=== PATIENT | male | born 1955 | race Caucasian/White ===

== ENCOUNTER 2020-04-08 15:10 | Inpatient (IN) | payer MEDICARE, MEDICAID ==
[~2020-04-08] VITALS: Ht 185.4 cm; Wt 136.0 kg
[2020-04-08 16:13] LABS: BASOPHILS # (AUTO) 0.1 X10'3 (0-0.2); BASOPHILS % (AUTO) 1.2 % (0-1); EOSINOPHILS # (AUTO) 0.3 X10'3 (0-0.9); EOSINOPHILS % (AUTO) 4.3 % (0-6); HEMATOCRIT 40.1 % (42.0-52.0); HEMOGLOBIN 13.7 g/dl (14.0-17.9); LYMPHOCYTES # (AUTO) 2.2 X10'3 (1.1-4.8); LYMPHOCYTES % (AUTO) 32.3 % (21-51); MEAN CORPUSCULAR HGB CONC 34.3 g/dL (33.0-36.5); MEAN CORPUSCULAR VOLUME 96.2 FL (78-98); MEAN PLATELET VOLUME 8.7 FL (7.4-10.4); MONOCYTES # (AUTO) 0.5 X10'3 (0-0.9); MONOCYTES % (AUTO) 7.6 % (2-12); NEUTROPHILS # (AUTO) 3.6 X10'3 (1.8-7.7); NEUTROPHILS % (AUTO) 54.6 % (42-75); PLATELET COUNT 177 X10'3 (140-440); RED BLOOD COUNT 4.16 X10'6 (4.70-6.10); RED CELL DISTRIBUTION WIDTH 13.7 % (11.5-14.5); WHITE BLOOD COUNT 6.7 X10'3 (4.5-11.0)
[2020-04-08 16:31] LABS: ALANINE AMINOTRANSFERASE 45 U/L (12-78); ALBUMIN 3.1 G/DL (3.4-5.0); ALKALINE PHOSPHATASE 58 IU/L (46-116); ANION GAP 5 (8-16); ASPARTATE AMINO TRANSFERASE 34 U/L (10-37); BILIRUBIN,TOTAL 0.7 MG/DL (0.1-1.0); BLOOD UREA NITROGEN 13 MG/DL (7-18); BUN/CREATININE RATIO 10.8 (5.4-32.0); CALCIUM 8.4 MG/DL (8.5-10.1); CHLORIDE 106 MMOL/L (99-107); GLUCOSE 115 MG/DL (70-104); POTASSIUM 4.1 MMOL/L (3.5-5.1); SODIUM 139 MMOL/L (135-145); TOTAL CARBON DIOXIDE 27.8 MMOL/L (24-32); TOTAL PROTEIN 6.3 G/DL (6.4-8.2); eGFR 61 ML/MIN
[2020-04-08 16:37] LABS: MAGNESIUM 2.2 MG/DL (1.5-2.4)
[2020-04-08] MEDS ORDERED: WARF-55 PO (18:00)
[2020-04-08] MEDS ORDERED: FURO40TA4 PO (18:00)
[2020-04-08] MEDS ORDERED: VITA100T PO (18:00)
[2020-04-08] MEDS ORDERED: CHOL100053 PO (18:00)
[2020-04-08] MEDS ORDERED: AMIO200T61 PO (18:00)
[2020-04-08] MEDS ORDERED: LEVO50TA8 PO (18:00)
[2020-04-08] MEDS ORDERED: CARV25TA2 PO (18:00)
[2020-04-08] MEDS ORDERED: ATOR40TA72 PO (18:00)
[2020-04-08] MEDS ORDERED: amiodarone 150mg/dext, iso-os 100 ML IV ONE (18:20)
[2020-04-08] MEDS ORDERED: ondansetron/PF 4mg/2ml inj IV PRN (18:20)
[2020-04-08] MEDS ORDERED: mag hydrox/Alum hydrox/simeth 30ml oral suspension PO PRN (18:20)
[2020-04-08] MEDS ORDERED: magnesium hydroxide 30ml (MOM) UD suspension PO PRN (18:20)
[2020-04-08] MEDS ORDERED: acetaminophen 325mg tablet PO PRN (18:20)
[2020-04-08] MEDS ORDERED: amiodarone 50MG/ML inj IV ONE (18:35)
[2020-04-08] MEDS ORDERED: amiodarone inj. 450 MG in dextrose 5%-water 250 ML IV SCH (18:35)
[2020-04-08 19:00] LABS: HEMOGLOBIN A1C 5.9 % (4.5-6.2)
--- NOTE | 2020-04-08 19:30 | NUR ---
Patient in room PCU 3026. I have received report from Mehran YI and had the opportunity to ask questions and assume patient care.
[2020-04-08] MEDS: amiodarone/D5 360MG/200ML BAG 200 ML IV SCH (19:31)
[2020-04-08 19:45] VITALS: BP 129/82
[2020-04-08] MEDS: heparin, porcine 5000 units/ml vial SQ SCH (20:00)
[2020-04-08] MEDS: carVEDilol 12.5mg tablet PO SCH (20:00)
--- NOTE | 2020-04-08 20:08 | NUR ---
pt was complaining of hunger, called [facility], new orders for cardiac diet and NPO after midnight.
--- NOTE | 2020-04-08 20:28 | NUR ---
pt says he uses Bipap at home, talked to chevy on phone, he ordered for RT to eval and treat
--- NOTE | 2020-04-08 20:34 | NUR ---
paged RT about pts new orders for eval and treat
[2020-04-08] MEDS ORDERED: phytonadione inj. 10 MG in normal saline 100ml IV soln 99 ML IV ONE (20:45)
[2020-04-08 22:00] VITALS: BP 113/71
--- NOTE | 2020-04-08 22:21 | NUR ---
just sent page to RT "pt 3026A is supposed to be on Bipap not Cpap the daughter called and let me know. thank you"
[2020-04-08] MEDS: atorvastatin 20mg tablet PO SCH (22:35)
[2020-04-08] MEDS: normal saline 1000ml 1,000 ML IV SCH (23:35)
[2020-04-09] VITALS (14 sets, daily range): BP systolic 81–126; BP diastolic 54–85
[2020-04-09] MEDS: amiodarone/D5 360MG/200ML BAG 200 ML IV SCH ×2 (01:34→16:00)
[2020-04-09] MEDS: normal saline 1000ml 1,000 ML IV SCH ×2 (04:17→10:30)
[2020-04-09 05:26] LABS: BASOPHILS # (AUTO) 0.1 X10'3 (0-0.2); BASOPHILS % (AUTO) 0.9 % (0-1); EOSINOPHILS # (AUTO) 0.4 X10'3 (0-0.9); EOSINOPHILS % (AUTO) 4.1 % (0-6); HEMATOCRIT 39.8 % (42.0-52.0); HEMOGLOBIN 13.7 g/dl (14.0-17.9); LYMPHOCYTES # (AUTO) 2.9 X10'3 (1.1-4.8); LYMPHOCYTES % (AUTO) 34.5 % (21-51); MEAN CORPUSCULAR HEMOGLOBIN 33.1 PG (27.0-31.0); MEAN CORPUSCULAR HGB CONC 34.4 g/dL (33.0-36.5); MEAN CORPUSCULAR VOLUME 96.3 FL (78-98); MEAN PLATELET VOLUME 8.7 FL (7.4-10.4); MONOCYTES # (AUTO) 0.7 X10'3 (0-0.9); MONOCYTES % (AUTO) 7.8 % (2-12); NEUTROPHILS # (AUTO) 4.5 X10'3 (1.8-7.7); NEUTROPHILS % (AUTO) 52.7 % (42-75); PLATELET COUNT 178 X10'3 (140-440); RED BLOOD COUNT 4.13 X10'6 (4.70-6.10); RED CELL DISTRIBUTION WIDTH 13.9 % (11.5-14.5); WHITE BLOOD COUNT 8.5 X10'3 (4.5-11.0)
[2020-04-09 05:39] LABS: ANION GAP 6 (8-16); BLOOD UREA NITROGEN 13 MG/DL (7-18); BUN/CREATININE RATIO 11.8 (5.4-32.0); CALCIUM 8.4 MG/DL (8.5-10.1); CHLORIDE 107 MMOL/L (99-107); GLUCOSE 89 MG/DL (70-104); POTASSIUM 3.4 MMOL/L (3.5-5.1); SODIUM 141 MMOL/L (135-145); TOTAL CARBON DIOXIDE 27.9 MMOL/L (24-32); eGFR 68 ML/MIN
--- NOTE | 2020-04-09 06:19 | NUR ---
Problems reprioritized. Patient report given, questions answered & plan of care reviewed with Ivonne YI.
--- NOTE | 2020-04-09 06:43 | NUR ---
Patient in room PCU 3026. I have received report from vipul winston and had the opportunity to ask questions and assume patient care.
[2020-04-09] MEDS: levoTHYROXINE 25mcg tablet PO SCH (07:50)
[2020-04-09] MEDS: carVEDilol 12.5mg tablet PO SCH ×2 (07:50→10:34)
[2020-04-09] MEDS: vitamin D (cholecalciferol) 1,000 unit tablet PO SCH (07:50)
[2020-04-09] MEDS: vitamin B comp w/Vit. C tab 1 TAB TABLET PO SCH (07:50)
[2020-04-09] MEDS: heparin, porcine 5000 units/ml vial SQ SCH (08:00)
[2020-04-09] MEDS: K and/or MAG REPLACEMENT MC SCH (09:55)
[2020-04-09] MEDS ORDERED: potassium Cl 20 mEq SR tablet PO PRN (09:55)
[2020-04-09] MEDS ORDERED: phytonadione inj. 5 MG in normal saline 100ml IV soln 99.5 ML IV ONE (10:15)
[2020-04-09] MEDS: furosemide 40mg tablet PO SCH (10:33)
[2020-04-09] MEDS: potassium Cl 20 mEq SR tablet PO PRN ×2 (10:33→19:42)
--- NOTE | 2020-04-09 10:58 | NUR ---
DM consult: Pt with A1c 5.9%, DM education not warranted at this time. Will continue to follow. Addendum: 04/09/20 at [address] Amended: Links added.
--- NOTE | 2020-04-09 11:00 | NUR ---
talked with dr. lamar re; need for heart cath ,orders taken to check INR after dose of vitamin k @1400,feed pt light lunch now then Npo after 12
--- NOTE | 2020-04-09 15:00 | NUR ---
[facility] INR =1.4,pt prepped for heart cath [id number] emla cream applied right wrist,consent at bedside
[2020-04-09] MEDS ORDERED: LIDOcaine/PRILOcaine 5gm cream TP ONE (16:05)
[2020-04-09] MEDS ORDERED: fentaNYL/PF 50MCG/1 ML 2ML syringe ONE (16:45)
[2020-04-09] MEDS ORDERED: verapamil 2.5 mg/ml inj IV ONE (16:45)
[2020-04-09] MEDS ORDERED: midazolam 2 mg/2 ml injection ONE (16:45)
[2020-04-09] MEDS ORDERED: nitroGLYCERIN-Tridil 50MG/D5W 250 ML IV ONE (16:45)
[2020-04-09] MEDS ORDERED: heparin 1,000unit/ml 10ml vial 10 ML ONE (16:46)
[2020-04-09] MEDS ORDERED: LIDOcaine 1% (10mg/ml)w/preservative injection 20ml MDV ONE (16:46)
[2020-04-09] MEDS ORDERED: iohexol 350MG/ML 100ml bottle IV ONE (16:46)
[2020-04-09] MEDS ORDERED: iohexol 350 MG/ML 50ML vial IV ONE (16:46)
--- NOTE | 2020-04-09 17:00 | NUR ---
report given to Vedar and d lab technician RN pt to r and d lab technician
--- NOTE | 2020-04-09 18:30 | NUR ---
Patient in room PCU 3012. I have received report from Ivonne YI and had the opportunity to ask questions and assume patient care.
--- NOTE | 2020-04-09 19:29 | NUR ---
Dr. Hanley called to check up on patient condition. Doctor agreed to pain management orders. Will continue to closely monitor patients cath site as per Dr. Hanley's direction.
[2020-04-09] MEDS ORDERED: morphine 2 MG/ML inj. syringe IV ONE (19:30)
[2020-04-09] MEDS ORDERED: HYDROcodone/acetaminophen 10/325mg tab PO PRN (19:30)
[2020-04-09] MEDS: amiodarone 200mg tablet PO SCH (19:46)
[2020-04-09] MEDS: atorvastatin 20mg tablet PO SCH (22:09)
[2020-04-10] VITALS (8 sets, daily range): BP systolic 92–141; BP diastolic 61–83
[2020-04-10] MEDS: normal saline 1000ml 1,000 ML IV SCH (00:17)
[2020-04-10 05:52] LABS: BASOPHILS # (AUTO) 0.1 X10'3 (0-0.2); EOSINOPHILS # (AUTO) 0.5 X10'3 (0-0.9); EOSINOPHILS % (AUTO) 6.3 % (0-6); HEMATOCRIT 39.1 % (42.0-52.0); HEMOGLOBIN 13.4 g/dl (14.0-17.9); LYMPHOCYTES # (AUTO) 2.6 X10'3 (1.1-4.8); LYMPHOCYTES % (AUTO) 34.9 % (21-51); MEAN CORPUSCULAR HEMOGLOBIN 33.3 PG (27.0-31.0); MEAN CORPUSCULAR HGB CONC 34.4 g/dL (33.0-36.5); MEAN CORPUSCULAR VOLUME 96.7 FL (78-98); MEAN PLATELET VOLUME 8.6 FL (7.4-10.4); MONOCYTES # (AUTO) 0.6 X10'3 (0-0.9); NEUTROPHILS # (AUTO) 3.8 X10'3 (1.8-7.7); NEUTROPHILS % (AUTO) 49.8 % (42-75); PLATELET COUNT 172 X10'3 (140-440); RED BLOOD COUNT 4.04 X10'6 (4.70-6.10); RED CELL DISTRIBUTION WIDTH 13.8 % (11.5-14.5); WHITE BLOOD COUNT 7.5 X10'3 (4.5-11.0)
[2020-04-10 06:05] LABS: ALBUMIN 2.9 G/DL (3.4-5.0); ANION GAP 5 (8-16); BLOOD UREA NITROGEN 11 MG/DL (7-18); BUN/CREATININE RATIO 11.6 (5.4-32.0); CALCIUM 8.4 MG/DL (8.5-10.1); CHLORIDE 108 MMOL/L (99-107); CREATININE 0.95 MG/DL (0.60-1.10); GLUCOSE 89 MG/DL (70-104); POTASSIUM 3.8 MMOL/L (3.5-5.1); SODIUM 141 MMOL/L (135-145); TOTAL CARBON DIOXIDE 28.4 MMOL/L (24-32); eGFR 80 ML/MIN
--- NOTE | 2020-04-10 06:22 | NUR ---
Problems reprioritized. Patient report given, questions answered & plan of care reviewed with Kiana YI
--- NOTE | 2020-04-10 06:23 | NUR ---
Patient in room PCU 3026. I have received report from Jam YI and had the opportunity to ask questions and assume patient care. Pt. resting comfortably in no apparent distress.
[2020-04-10] MEDS: vitamin D (cholecalciferol) 1,000 unit tablet PO SCH (07:50)
[2020-04-10] MEDS: levoTHYROXINE 25mcg tablet PO SCH (07:50)
[2020-04-10] MEDS: vitamin B comp w/Vit. C tab 1 TAB TABLET PO SCH (07:50)
[2020-04-10] MEDS: carVEDilol 12.5mg tablet PO SCH (07:51)
[2020-04-10] MEDS: amiodarone 200mg tablet PO SCH (07:51)
[2020-04-10] MEDS: K and/or MAG REPLACEMENT MC SCH (08:00)
[2020-04-10] MEDS: furosemide 40mg tablet PO SCH (08:00)
[2020-04-10] MEDS ORDERED: warfarin 5mg tablet PO SCH (09:09)
--- NOTE | 2020-04-10 09:23 | NUR ---
promotional table spacer PAGER ID: [phone] MESSAGE: [phone] Manuel Lloyd : Post cath order for coumadin missed, would you like a PT/INR before administering coumadin. Hailey YI ext [phone]
[2020-04-10] MEDS ORDERED: warfarin 10mg tablet PO ONE (11:35)
--- NOTE | 2020-04-10 11:40 | NUR ---
Spoke with Dr. Hanley regarding coumadin order and request for PT/INR. MD stated to administer Coumadin 10 mg one time now and then decrease the dose to 5 mg po Q HS starting tomorrow 04/11/20. MD also gave order to administer lisinopril 2.5 mg po @ noon. MD also requested to ambulate patient.
[2020-04-10] MEDS ORDERED: lisinopril 2.5mg tablet PO SCH (12:00)
--- NOTE | 2020-04-10 14:45 | NUR ---
Patient was cleared to discharge home. Pt. ambulated and tolerated well with no distress. All discharge instructions and medications reviewed with patient. Core measures reviewed with patient and daughter via phone. Patient verbalized understanding and had no further questions. Encouraged patient to monitor for s/sx of bleeding. Pt. stated he also gets his INR's checked twice a week. PIV and tele removed. Patient and daughter to arrange an appointment with outside installer apprentice and primary. Patient left in stable condition.
--- NOTE | 2020-04-10 16:38 | NUR ---
Received call from [facility] requesting an order for home health as this is a current patient of [facility]. Lawanda stated that since he was admitted he will require a new order, ANKUR Phillip notified and stated she will sent fax. Also, spoke with Patients daughter Kathryn regarding groin site and showering instructions. Encouraged her to call with any further questions.
[2020-04-10 20:06] LABS: ISTAT HGB ART 13.3 g/dl (14.0-18.0); ISTAT Hct ART 39 %PCV (42-52); ISTAT O2 SATURATION ARTERIAL 98 % (95-98); ISTAT SOURCE ART
[2020-04-11] MEDS ORDERED: warfarin 5mg tablet PO SCH (21:00)
--- NOTE | 2020-04-13 13:47 | NUR ---
Case management DC follow up: number provided does not connect
[2020-04-16] MEDS ORDERED: amiodarone 200mg tablet PO SCH (20:00)
== END 2020-04-10 14:25 | disposition home health service (06) | DRG 287 ==
LOC: ER 15:10 → ED HOLD 18:17 → PCU 3S 20:09
PROVIDERS: ADMIT Family Medicine; ATTEND Family Medicine
PROC: 5A09357 Assistance with Respiratory Ventilation, Less than 24 Consecutive Hours, Continuous Positive Airway Pressure (ICD-10-PCS; 2020-04-08)
PROC: 4A023N8 Measurement of Cardiac Sampling and Pressure, Bilateral, Percutaneous Approach (ICD-10-PCS; principal; 2020-04-09)
PROC: B2111ZZ Fluoroscopy of Multiple Coronary Arteries using Low Osmolar Contrast (ICD-10-PCS; 2020-04-09)
PROC: B2151ZZ Fluoroscopy of Left Heart using Low Osmolar Contrast (ICD-10-PCS; 2020-04-09)
PROC: 5A09357 Assistance with Respiratory Ventilation, Less than 24 Consecutive Hours, Continuous Positive Airway Pressure (ICD-10-PCS; 2020-04-09)
DX: I47.2 Ventricular tachycardia (principal); I13.0 Hypertensive heart and chronic kidney disease with heart failure and stage 1 through stage 4 chronic kidney disease, or unspecified chronic kidney disease; I42.9 Cardiomyopathy, unspecified; I50.22 Chronic systolic (congestive) heart failure; N17.9 Acute kidney failure, unspecified; E03.9 Hypothyroidism, unspecified; E66.9 Obesity, unspecified; E78.5 Hyperlipidemia, unspecified; G47.33 Obstructive sleep apnea (adult) (pediatric); I25.10 Atherosclerotic heart disease of native coronary artery without angina pectoris; J44.9 Chronic obstructive pulmonary disease, unspecified; N18.9 Chronic kidney disease, unspecified; T45.515A Adverse effect of anticoagulants, initial encounter; Y92.89 Other specified places as the place of occurrence of the external cause; Z86.711 Personal history of pulmonary embolism; Z86.718 Personal history of other venous thrombosis and embolism; Z95.5 Presence of coronary angioplasty implant and graft; Z95.810 Presence of automatic (implantable) cardiac defibrillator; Z68.39 Body mass index [BMI] 39.0-39.9, adult; Z87.891 Personal history of nicotine dependence
CPT/HCPCS: 36415; 71045; 76937; 80048; 80053; 82803; 82948; 83036; 83735; 83880; 84484; 85014; 85025; 85610; 87081; 93005; 93460; 94660; 94760; 99152; 99153; 99285; A6258; C1760; C1769; C1894; G0378; J1644; J2001; J2250; J2270; J3010; J3430; J3490; J7030; Q9967

== ENCOUNTER 2020-11-01 00:37 | Inpatient (IN) | payer MEDICARE, MEDICAID ==
[~2020-11-01] VITALS: Ht 182.9 cm; Wt 122.0 kg
[~2020-11-01 00:37] MED LIST: ALPR-623 PO; AMIO200T61 PO; ATOR40TA72 PO; CARV-50 PO; FURO40TA4 PO; LEVO50TA8 PO; LISI2.5T2 PO; WARF-55 PO
[2020-11-01] MEDS ORDERED: amiodarone 150mg/dext, iso-os 100 ML IV ONE (01:25)
[2020-11-01 01:33] LABS: BASOPHILS # (AUTO) 0.1 X10'3 (0-0.2); BASOPHILS % (AUTO) 1.3 % (0-1); EOSINOPHILS # (AUTO) 0.3 X10'3 (0-0.9); EOSINOPHILS % (AUTO) 3.1 % (0-6); HEMATOCRIT 41.2 % (42.0-52.0); HEMOGLOBIN 14.6 g/dl (14.0-17.9); LYMPHOCYTES # (AUTO) 2.3 X10'3 (1.1-4.8); LYMPHOCYTES % (AUTO) 23.1 % (21-51); MEAN CORPUSCULAR HEMOGLOBIN 34.4 PG (27.0-31.0); MEAN CORPUSCULAR HGB CONC 35.5 g/dL (33.0-36.5); MEAN CORPUSCULAR VOLUME 96.9 FL (78-98); MEAN PLATELET VOLUME 8.4 FL (7.4-10.4); MONOCYTES % (AUTO) 9.7 % (2-12); NEUTROPHILS # (AUTO) 6.2 X10'3 (1.8-7.7); NEUTROPHILS % (AUTO) 62.8 % (42-75); PLATELET COUNT 185 X10'3 (140-440); RED BLOOD COUNT 4.25 X10'6 (4.70-6.10); RED CELL DISTRIBUTION WIDTH 12.9 % (11.5-14.5); WHITE BLOOD COUNT 9.9 X10'3 (4.5-11.0)
[2020-11-01 01:40] LABS: PARTIAL THROMBOPLASTIN TIME 29 SECONDS (22-32)
[2020-11-01 01:43] LABS: ALANINE AMINOTRANSFERASE 58 U/L (12-78); ALBUMIN 3.1 G/DL (3.4-5.0); ALBUMIN/GLOBULIN RATIO 0.9 (1.1-1.5); ALKALINE PHOSPHATASE 88 IU/L (46-116); ANION GAP 3 (8-16); ASPARTATE AMINO TRANSFERASE 32 U/L (10-37); BILIRUBIN,TOTAL 0.7 MG/DL (0.1-1.0); BLOOD UREA NITROGEN 18 MG/DL (7-18); BUN/CREATININE RATIO 13.8 (5.4-32.0); CALCIUM 8.5 MG/DL (8.5-10.1); CHLORIDE 104 MMOL/L (99-107); GLUCOSE 110 MG/DL (70-104); POTASSIUM 3.6 MMOL/L (3.5-5.1); SODIUM 138 MMOL/L (135-145); TOTAL CARBON DIOXIDE 30.8 MMOL/L (24-32); TOTAL PROTEIN 6.7 G/DL (6.4-8.2); eGFR 56 ML/MIN
--- NOTE | 2020-11-01 02:00 | NUR ---
Pt started on Amiodarone drip at 600ml/hr. Upon taking vital signs BP 95/65, P-60, SP02 93% with RR 20. Consulted with Dr. Samson who agrees to lower drip rate to 100ml/hr and closely monitor vitals.
--- NOTE | 2020-11-01 02:13 | NUR ---
Pt states he feels the same as when he came in. Pt blood pressure 91/61 with pulse of 65 and RR 20 with Spo2 93% on RA
[2020-11-01] MEDS ORDERED: potassium Cl 20 mEq SR tablet PO PRN (02:20)
[2020-11-01] MEDS ORDERED: HYDROcodone/acetaminophen 5mg/325mg tablet PO PRN (02:20)
[2020-11-01] MEDS ORDERED: acetaminophen 325mg tablet PO PRN ×2 (02:20)
[2020-11-01] MEDS ORDERED: potassium Cl 40MEQ/1/2NS 520ml 520 ML IV PRN ×2 (02:20)
[2020-11-01] MEDS ORDERED: HYDROcodone/acetaminophen 10/325mg tab PO PRN (02:20)
[2020-11-01] MEDS ORDERED: magnesium Cl slow-release 64mg tablet PO PRN (02:20)
[2020-11-01] MEDS ORDERED: magnesium hydroxide 30ml (MOM) UD suspension PO PRN (02:20)
[2020-11-01] MEDS ORDERED: magnesium 2GM in 50ml NS 50 ML IV PRN (02:20)
[2020-11-01] MEDS ORDERED: ondansetron/PF 4mg/2ml inj IV PRN (02:20)
[2020-11-01] MEDS ORDERED: magnesium 4gm in 100ml NS 100 ML IV PRN (02:20)
[2020-11-01] MEDS ORDERED: mag hydrox/Alum hydrox/simeth 30ml oral suspension PO PRN (02:20)
[2020-11-01] MEDS ORDERED: CHOL10006 PO (02:25)
[2020-11-01] MEDS ORDERED: GINK120T4 PO (02:25)
[2020-11-01] MEDS ORDERED: ALPR-624 PO (02:25)
[2020-11-01] MEDS ORDERED: VITA-268 PO (02:25)
[2020-11-01 02:35] LABS: MAGNESIUM 1.9 MG/DL (1.5-2.4)
[2020-11-01] MEDS: normal saline 1000ml 1,000 ML IV SCH ×3 (02:36→20:40)
[2020-11-01 03:00] VITALS: BP 107/71
[2020-11-01] MEDS ORDERED: normal saline 1000ML IV soln IVB ONE (03:00)
[2020-11-01 06:00] VITALS: BP 110/64
--- NOTE | 2020-11-01 06:23 | NUR ---
Problems reprioritized. Patient report given, questions answered & plan of care reviewed with Zenaida YI.
--- NOTE | 2020-11-01 06:34 | NUR ---
Received report with Cheyanne from [facility].
[2020-11-01] MEDS ORDERED: levoTHYROXINE 25mcg tablet PO SCH (07:00)
[2020-11-01] MEDS: K and/or MAG REPLACEMENT MC SCH ×2 (07:20→19:50)
[2020-11-01] MEDS: carVEDilol 12.5mg tablet PO SCH ×2 (07:36→20:36)
[2020-11-01] MEDS: ALPRAZolam 0.5mg tablet PO PRN ×2 (07:36→20:35)
[2020-11-01] MEDS: amiodarone 200mg tablet PO SCH ×2 (07:36→20:35)
[2020-11-01] MEDS: potassium Cl 20 mEq SR tablet PO PRN ×3 (08:27→17:56)
[2020-11-01] MEDS ORDERED: magnesium 2GM in 50ml NS 50 ML IV ONE (10:00)
--- NOTE | 2020-11-01 10:02 | NUR ---
Orders received from MD for 2 GM magnesium one dose, give now.
--- NOTE | 2020-11-01 10:10 | NUR ---
Patient in room U 3017. I have received report from KASSIDY Ross and had the opportunity to ask questions and assume patient care. Patient awake in bed and in no acute distress.
[2020-11-01 11:00] VITALS: BP 100/62
--- NOTE | 2020-11-01 13:12 | NUR ---
Called patient's daughter to give her an update.
--- NOTE | 2020-11-01 14:14 | NUR ---
PAGER ID: [phone] MESSAGE: Rosy Emerson on tele, Mr. Lloyd in [phone], requires a Covid test for transfer
[2020-11-01] MEDS ORDERED: ondansetron 4mg rapidly disintigrating tab PO PRN (14:30)
--- NOTE | 2020-11-01 14:51 | NUR ---
Paged Dr. Jean regarding patient needing COVID test prior to transfer. PAGER ID: [phone] MESSAGE: [phone]. Manuel Lloyd. Patient being transferred tonight to [facility] in [facility]. Need approval for COVID test RONN. Thank you. Zenaida YI x [phone]
[2020-11-01 15:00] VITALS: BP 88/68
--- NOTE | 2020-11-01 15:32 | NUR ---
PAGER ID: [phone] MESSAGE: SANTANA ON [email or web address], DR. PAYNE IT IS URGENT THAT WE GET THE COVID SWAB RAPID TEST DONE FOR 3017B, MR. GRIFFITH IN ORDER TO TRANSFER THE PATIENT TO [facility]
--- NOTE | 2020-11-01 17:30 | NUR ---
Orientee documentation: I have reviewed and agree with all interventions, assessments performed and documented by KASSIDY Gallegos.
--- NOTE | 2020-11-01 17:30 | NUR ---
[place] Medication Administration: For this medication-pass time frame, all medication were reviewed, dispensed, administered and documented per hospital policy by KASSIDY Gallegos.
[2020-11-01 18:00] VITALS: BP 108/69
--- NOTE | 2020-11-01 18:01 | NUR ---
Patient's COVID results called in and faxed to [facility] transfer center. Patient has a bed available and will be transported tonight. [facility] called to arrange pickup. Report still needs to be called to [facility] in [place].
--- NOTE | 2020-11-01 18:30 | NUR ---
Problems reprioritized. Patient report given, questions answered & plan of care reviewed with Suze.
--- NOTE | 2020-11-01 18:34 | NUR ---
Patient in room PCU 3017. I have received report from Zenaida YI and Dannielle YI and had the opportunity to ask questions and assume patient care.
[2020-11-01] MEDS ORDERED: temazepam 15mg capsule PO PRN (21:00)
[2020-11-01] MEDS ORDERED: atorvastatin 20mg tablet PO SCH (21:00)
[2020-11-01] MEDS ORDERED: warfarin 5mg tablet PO SCH (21:00)
[2020-11-01 22:00] VITALS: BP 87/59
--- NOTE | 2020-11-01 22:07 | NUR ---
Patient with plans to transfer to [facility] in [place] was originally supposed to travel by [facility] but the transport was set up as a BLS transport and therefore there was no one qualified to monitor the patient on cardiac monitoring during the transport. Dr. Hanley notified and personally spoke with the pressure control supervisor of [facility] who attempted to get staff to come in for the transport but were unable to and also reached out to the [facility] but they were unavailable. lead burner supervisor Yamileth notified and advised to contact [facility]. [facility] is able to pick remover the patient with an estimated pick remover time of [phone].
--- NOTE | 2020-11-01 22:53 | NUR ---
Report called to Judith YI at [facility] in [place] and they have been updated on the expected order picker time.
--- NOTE | 2020-11-01 23:45 | NUR ---
Patient transferred out at this time to [facility] in [place] by [facility]. He left with all belongings and discharge instructions. Report given to transport and already previously given to the receiving nurse. Patient in stable condition upon transfer out.
== END 2020-11-01 23:45 | disposition short-term general hospital (02) | DRG 309 ==
LOC: ER 00:38 → ED HOLD 02:18 → PCU 3S 03:25
PROVIDERS: ADMIT Family Medicine; ATTEND Internal Medicine
PROC: 5A2204Z Restoration of Cardiac Rhythm, Single (ICD-10-PCS; principal; 2020-11-01)
PROC: 5A09357 Assistance with Respiratory Ventilation, Less than 24 Consecutive Hours, Continuous Positive Airway Pressure (ICD-10-PCS; 2020-11-01)
PROC: 4B02XTZ Measurement of Cardiac Defibrillator, External Approach (ICD-10-PCS; 2020-11-01)
DX: I47.2 Ventricular tachycardia (principal); I42.0 Dilated cardiomyopathy; E03.9 Hypothyroidism, unspecified; E78.5 Hyperlipidemia, unspecified; I12.9 Hypertensive chronic kidney disease with stage 1 through stage 4 chronic kidney disease, or unspecified chronic kidney disease; N18.9 Chronic kidney disease, unspecified; I95.9 Hypotension, unspecified; I25.10 Atherosclerotic heart disease of native coronary artery without angina pectoris; Z20.828 Contact with and (suspected) exposure to other viral communicable diseases; E66.9 Obesity, unspecified; G47.33 Obstructive sleep apnea (adult) (pediatric); Y92.89 Other specified places as the place of occurrence of the external cause; Z86.73 Personal history of transient ischemic attack (TIA), and cerebral infarction without residual deficits; Z95.5 Presence of coronary angioplasty implant and graft; Z95.810 Presence of automatic (implantable) cardiac defibrillator; Z68.36 Body mass index [BMI] 36.0-36.9, adult; Z88.8 Allergy status to other drugs, medicaments and biological substances; Z79.899 Other long term (current) drug therapy
CPT/HCPCS: 36415; 71045; 80053; 83735; 83880; 84484; 85025; 85610; 85730; 87081; 87635; 93005; 96365; 99285; G0378; J3475; J7030

== ENCOUNTER 2021-12-20 13:05 | Outpatient (CLI) | payer MEDICARE, MEDICAID ==
[~2021-12-20 13:05] MED LIST changes: -ALPR-623 PO; +ALPR-624 PO; +CHOL10006 PO; +GINK120T4 PO; +LISI2.5T14 PO; -LISI2.5T2 PO; +VITA-268 PO
== END 2021-12-20 23:59 | disposition home or self-care (01) ==
LOC: CARD DIAG 13:05
PROVIDERS: ATTEND Nurse Practitioner Adult Health
DX: I08.1 Rheumatic disorders of both mitral and tricuspid valves (principal); I50.22 Chronic systolic (congestive) heart failure; I25.10 Atherosclerotic heart disease of native coronary artery without angina pectoris; Z95.5 Presence of coronary angioplasty implant and graft; Z95.810 Presence of automatic (implantable) cardiac defibrillator
CPT/HCPCS: 93005; 93306

== ENCOUNTER 2023-03-13 12:10 | Inpatient (IN) | payer MEDICARE, MEDICAID ==
[~2023-03-13] VITALS: Ht 182.9 cm; Wt 109.8 kg
[2023-03-13] MEDS ORDERED: acetaminophen 325mg tablet PO ONE (12:25)
[2023-03-13] MEDS ORDERED: CefTRIAXone 2gm/D5W 50ml BAG 50 ML IV ONE (12:30)
[2023-03-13] MEDS ORDERED: normal saline 1000ML IV soln IV ONE (12:30)
[2023-03-13] MEDS ORDERED: vancomycin/NS 1 GM ADD-VANTAGE 250 ML IV ONE (12:30)
[2023-03-13] MEDS ORDERED: acetaminophen 325mg tablet PO STA (12:31)
[2023-03-13 12:54] LABS: BASOPHILS % (AUTO) 0.4 % (0-1); EOSINOPHILS % (AUTO) 0.2 % (0-6); HEMATOCRIT 42.9 % (42.0-52.0); HEMOGLOBIN 14.6 g/dl (14.0-17.9); LYMPHOCYTES # (AUTO) 1.3 X10'3 (1.1-4.8); LYMPHOCYTES % (AUTO) 9.3 % (21-51); MEAN CORPUSCULAR HEMOGLOBIN 34.1 PG (27.0-31.0); MEAN CORPUSCULAR HGB CONC 34.1 g/dL (33.0-36.5); MEAN CORPUSCULAR VOLUME 100.2 FL (78-98); MONOCYTES # (AUTO) 0.7 X10'3 (0-0.9); MONOCYTES % (AUTO) 4.9 % (2-12); NEUTROPHILS # (AUTO) 11.8 X10'3 (1.8-7.7); NEUTROPHILS % (AUTO) 85.2 % (42-75); PLATELET COUNT 195 X10'3 (140-440); RED BLOOD COUNT 4.28 X10'6 (4.70-6.10); RED CELL DISTRIBUTION WIDTH 13.3 % (11.5-14.5); WHITE BLOOD COUNT 13.9 X10'3 (4.5-11.0)
[2023-03-13 13:04] LABS: CLARITY,URINE CLEAR (Clear); COLOR,URINE YELLOW (Yellow); GLUCOSE, URINE NEGATIVE (Neg); KETONES,URINE NEGATIVE (Neg); LEUKOCYTE ESTERASE ,URINE NEGATIVE (Neg); NITRITES, URINE NEGATIVE (Neg); OCCULT BLOOD,URINE NEGATIVE (Neg); PROTEIN,URINE NEGATIVE (Neg); UROBILINOGEN,URINE 0.2 E.U/dL (0.2-1.0)
[2023-03-13] MEDS ORDERED: azithromycin/NS 500mg/250ml 250 ML IV ONE (13:05)
[2023-03-13 13:08] LABS: UA COLLECTION TYPE STRAIGHT CATH
[2023-03-13 13:08] LABS: ALANINE AMINOTRANSFERASE 41 U/L (12-78); ALBUMIN 3.5 G/DL (3.4-5.0); ALKALINE PHOSPHATASE 105 IU/L (46-116); ANION GAP 5 (8-16); ASPARTATE AMINO TRANSFERASE 27 U/L (10-37); BILIRUBIN,TOTAL 0.7 MG/DL (0.1-1.0); BLOOD UREA NITROGEN 9 MG/DL (7-18); BUN/CREATININE RATIO 8.7 (10.0-20.0); CALCIUM 8.4 MG/DL (8.5-10.1); CHLORIDE 102 MMOL/L (99-107); CREATININE 1.04 MG/DL (0.60-1.10); GLUCOSE 70 MG/DL (70-104); POTASSIUM 4.1 MMOL/L (3.5-5.1); SODIUM 138 MMOL/L (135-145); TOTAL PROTEIN 6.9 G/DL (6.4-8.2); eGFR 71 ML/MIN
[2023-03-13] MEDS ORDERED: normal saline 1000ml 1,000 ML IV ONE ×2 (13:20→14:40)
[2023-03-13] MEDS ORDERED: ipratropium/albuterol 3ml nebule NEB ONE (14:10)
--- NOTE | 2023-03-13 14:10 | NUR ---
NOTIFIED PROVIDER OF LOW 02 SATS ON RM AIR 83% - PT TO BE PLACED ON N\C AT 2LPM AND TITRATE UNTIL SAT >92%
--- NOTE | 2023-03-13 14:18 | NUR ---
02 SAT IS 92% ON 4LPM VIA N\C
[2023-03-13] MEDS ORDERED: iohexol 350MG/ML 100ml bottle IV ONE (14:26)
[2023-03-13] MEDS ORDERED: magnesium Cl slow-release 64mg tablet PO PRN (15:05)
[2023-03-13] MEDS ORDERED: ondansetron/PF 4mg/2ml inj IV PRN (15:05)
[2023-03-13] MEDS ORDERED: HYDROcodone/acetaminophen 5mg/325mg tablet PO PRN (15:05)
[2023-03-13] MEDS ORDERED: potassium Cl 40MEQ/1/2NS 520ml 520 ML IV PRN (15:05)
[2023-03-13] MEDS ORDERED: morphine 2 MG/ML inj. syringe IV PRN (15:05)
[2023-03-13] MEDS ORDERED: magnesium 4gm in 100ml NS 100 ML IV PRN (15:05)
[2023-03-13] MEDS ORDERED: magnesium 2GM in 50ml NS 50 ML IV PRN (15:05)
[2023-03-13] MEDS ORDERED: potassium Cl 20 mEq SR tablet PO PRN (15:05)
[2023-03-13] MEDS ORDERED: CARV3.123 PO (15:27)
[2023-03-13] MEDS ORDERED: WARF-55 PO (15:27)
[2023-03-13] MEDS ORDERED: FURO-150 PO (15:27)
[2023-03-13] MEDS ORDERED: ALPR0.5T8 PO ×2 (15:27)
[2023-03-13] MEDS ORDERED: AMIO200T27 PO (15:27)
[2023-03-13] MEDS ORDERED: SPIR25TA5 PO (15:27)
[2023-03-13] MEDS ORDERED: FERR-39 PO (15:30)
[2023-03-13] MEDS ORDERED: azithromycin/NS 500mg/250ml 250 ML IV SCH (16:00)
[2023-03-13] MEDS ORDERED: CefTRIAXone 2gm/D5W 50ml BAG 50 ML IV SCH (16:00)
[2023-03-13] MEDS: normal saline 1000ml 1,000 ML IV SCH ×2 (17:15→19:52)
[2023-03-13] MEDS: normal saline 500ml IV soln 500 ML IV SCH ×3 (18:02→22:55)
[2023-03-13 19:25] VITALS: BP 94/56
[2023-03-13] MEDS: enoxaparin 30mg/0.3ml syringe SQ SCH (19:53)
[2023-03-13 22:00] VITALS: BP 85/47
[2023-03-14] VITALS (7 sets, daily range): BP systolic 81–98; BP diastolic 46–60
[2023-03-14] MEDS: normal saline 500ml IV soln 500 ML IV SCH ×6 (01:17→10:00)
--- NOTE | 2023-03-14 01:21 | NUR ---
Around 2034 pt was on nasal cannula with O2 sat between 86-89,every advice and attempt made to put her on bipap was to no avail as pt refused. was notified of pts low O2 and refusal to use bipap.According to MD ,there is nothing to be done as pt purposefully refused the bipap. Pt later agreed to use the high flow which increased her O2 to 90-91,but went back to the 80s with sob after about 2hr of using the high flow.Around 2230 pts sat was in the 70s - 80s with increased sob and heart rate in the 130s-140s.RT was notified but he said there was nothing he can do since pt refused to pt on her bipap.It took two nurses to persuade the pt to accept the bipap. was notified of the situation,and He orderer increase of cardizem rate from 5mL to 10mL/hr and bipap use from every night to PRN as requested by RT. Addendum: 03/14/23 at 0202 by Ivy Costa RN pls ignore the above note it is the wrong pt.
[2023-03-14 06:11] LABS: BASOPHILS % (AUTO) 0.1 % (0-1); EOSINOPHILS % (AUTO) 0 % (0-6); HEMOGLOBIN 11.4 g/dl (14.0-17.9); LYMPHOCYTES # (AUTO) 2.1 X10'3 (1.1-4.8); LYMPHOCYTES % (AUTO) 8.4 % (21-51); MEAN CORPUSCULAR HEMOGLOBIN 34.2 PG (27.0-31.0); MEAN CORPUSCULAR HGB CONC 34.4 g/dL (33.0-36.5); MEAN CORPUSCULAR VOLUME 99.4 FL (78-98); MEAN PLATELET VOLUME 8.2 FL (7.4-10.4); MONOCYTES # (AUTO) 1.8 X10'3 (0-0.9); NEUTROPHILS # (AUTO) 21.5 X10'3 (1.8-7.7); NEUTROPHILS % (AUTO) 84.5 % (42-75); PLATELET COUNT 129 X10'3 (140-440); RED BLOOD COUNT 3.32 X10'6 (4.70-6.10); RED CELL DISTRIBUTION WIDTH 13.3 % (11.5-14.5)
[2023-03-14 06:35] LABS: ALANINE AMINOTRANSFERASE 50 U/L (12-78); ALBUMIN 2.1 G/DL (3.4-5.0); ALBUMIN/GLOBULIN RATIO 0.8 (1.1-1.5); ALKALINE PHOSPHATASE 57 IU/L (46-116); ANION GAP 7 (8-16); ASPARTATE AMINO TRANSFERASE 45 U/L (10-37); BILIRUBIN,TOTAL 0.9 MG/DL (0.1-1.0); BLOOD UREA NITROGEN 12 MG/DL (7-18); BUN/CREATININE RATIO 11.2 (10.0-20.0); CALCIUM 7.6 MG/DL (8.5-10.1); CHLORIDE 107 MMOL/L (99-107); CREATININE 1.07 MG/DL (0.60-1.10); GLUCOSE 102 MG/DL (70-104); POTASSIUM 3.6 MMOL/L (3.5-5.1); SODIUM 138 MMOL/L (135-145); TOTAL CARBON DIOXIDE 24.5 MMOL/L (24-32); TOTAL PROTEIN 4.8 G/DL (6.4-8.2); eGFR 69 ML/MIN
[2023-03-14 06:44] LABS: WHITE BLOOD COUNT 25.4 X10'3 (4.5-11.0)
[2023-03-14 06:47] LABS: TOTAL CELLS COUNTED 100
[2023-03-14 06:48] LABS: PLATELET ESTIMATE DECREASED
--- NOTE | 2023-03-14 06:48 | NUR ---
Problems reprioritized. Patient report given, questions answered & plan of care reviewed with YOLANDE YI.
--- NOTE | 2023-03-14 09:32 | NUR ---
sent to [facility]: [phone] Gabino: wbc is 25.4. Please order home medications. med rec has been completed. thank you.
[2023-03-14] MEDS: enoxaparin 30mg/0.3ml syringe SQ SCH (09:42)
[2023-03-14] MEDS ORDERED: vancomycin/NS 1 GM ADD-VANTAGE 250 ML IV SCH (10:10)
[2023-03-14] MEDS: cefepime 1GM/NS ADD-VANTAGE 100 ML IV SCH ×3 (11:14→23:15)
[2023-03-14] MEDS ORDERED: lactobacillus acidophilus cap PO SCH (11:45)
[2023-03-14] MEDS: vancomycin/NS 1 GM ADD-VANTAGE 250 ML IV SCH ×2 (11:57→23:15)
[2023-03-14] MEDS: acetaminophen 325mg tablet PO PRN (15:32)
[2023-03-14] MEDS: lactobacillus rhamnosus 10,000 MMU CELLS/CAPSULE PO SCH ×2 (15:33→20:08)
[2023-03-14] MEDS: azithromycin/NS 500mg/250ml 250 ML IV SCH (15:38)
[2023-03-14] MEDS ORDERED: CefTRIAXone 2gm/D5W 50ml BAG 50 ML IV SCH (16:00)
[2023-03-14 16:06] LABS: BASOPHILS # (AUTO) 0.1 X10'3 (0-0.2); BASOPHILS % (AUTO) 0.2 % (0-1); EOSINOPHILS % (AUTO) 0.1 % (0-6); HEMATOCRIT 36.4 % (42.0-52.0); HEMOGLOBIN 12.2 g/dl (14.0-17.9); LYMPHOCYTES # (AUTO) 2.5 X10'3 (1.1-4.8); LYMPHOCYTES % (AUTO) 9.1 % (21-51); MEAN CORPUSCULAR HEMOGLOBIN 33.7 PG (27.0-31.0); MEAN CORPUSCULAR HGB CONC 33.4 g/dL (33.0-36.5); MEAN CORPUSCULAR VOLUME 100.7 FL (78-98); MEAN PLATELET VOLUME 8.3 FL (7.4-10.4); MONOCYTES # (AUTO) 1.7 X10'3 (0-0.9); MONOCYTES % (AUTO) 6.4 % (2-12); NEUTROPHILS # (AUTO) 22.9 X10'3 (1.8-7.7); NEUTROPHILS % (AUTO) 84.2 % (42-75); PLATELET COUNT 140 X10'3 (140-440); RED BLOOD COUNT 3.62 X10'6 (4.70-6.10); RED CELL DISTRIBUTION WIDTH 13.4 % (11.5-14.5)
[2023-03-14 16:12] LABS: WHITE BLOOD COUNT 27.2 X10'3 (4.5-11.0)
[2023-03-14] MEDS: furosemide 20 MG/2 ML vial IV SCH ×2 (16:49→20:00)
[2023-03-14 17:48] LABS: PLATELET ESTIMATE NORMAL; TOTAL CELLS COUNTED 100
[2023-03-14] MEDS: metoprolol tartrate 12.5mg (1/2 tablet) PO SCH (20:00)
[2023-03-14] MEDS: ALPRAZolam 0.5mg tablet PO SCH (20:07)
[2023-03-14] MEDS: atorvastatin 20mg tablet PO SCH (20:09)
[2023-03-14] MEDS ORDERED: warfarin 5mg tablet PO ONE (21:00)
[2023-03-15] VITALS (8 sets, daily range): BP systolic 88–107; BP diastolic 54–64
--- NOTE | 2023-03-15 06:34 | NUR ---
Patient in room PCU 3013. I have received report from Denilson and had the opportunity to ask questions and assume patient care.
[2023-03-15] MEDS: cefepime 1GM/NS ADD-VANTAGE 100 ML IV SCH ×3 (07:59→23:49)
[2023-03-15] MEDS: furosemide 20 MG/2 ML vial IV SCH ×2 (07:59→20:00)
[2023-03-15 08:00] LABS: ALANINE AMINOTRANSFERASE 66 U/L (12-78); ALBUMIN 2.2 G/DL (3.4-5.0); ALBUMIN/GLOBULIN RATIO 0.8 (1.1-1.5); ALKALINE PHOSPHATASE 61 IU/L (46-116); ANION GAP 7 (8-16); ASPARTATE AMINO TRANSFERASE 46 U/L (10-37); BLOOD UREA NITROGEN 14 MG/DL (7-18); BUN/CREATININE RATIO 14.7 (10.0-20.0); CALCIUM 8.3 MG/DL (8.5-10.1); CHLORIDE 107 MMOL/L (99-107); CREATININE 0.95 MG/DL (0.60-1.10); GLUCOSE 90 MG/DL (70-104); POTASSIUM 3.4 MMOL/L (3.5-5.1); SODIUM 140 MMOL/L (135-145); TOTAL CARBON DIOXIDE 26.5 MMOL/L (24-32); TOTAL PROTEIN 5.1 G/DL (6.4-8.2); eGFR 79 ML/MIN
[2023-03-15] MEDS: metoprolol tartrate 12.5mg (1/2 tablet) PO SCH ×2 (08:00→19:45)
[2023-03-15] MEDS: lactobacillus rhamnosus 10,000 MMU CELLS/CAPSULE PO SCH ×2 (08:00→20:06)
[2023-03-15] MEDS ORDERED: amiodarone 200mg tablet PO SCH (08:00)
[2023-03-15] MEDS: cholecalciferol (vitamin D3) 1,000 unit (25mcg) tablet PO SCH (08:00)
[2023-03-15] MEDS: levoTHYROXINE 25mcg tablet PO SCH (08:00)
[2023-03-15] MEDS: ferrous sulfate 325mg tablet PO SCH (08:00)
[2023-03-15] MEDS: spironolactone 25 MG tablet PO SCH (08:00)
[2023-03-15] MEDS ORDERED: warfarin 5mg tablet PO SCH (08:00)
[2023-03-15] MEDS: ALPRAZolam 0.25mg tablet PO SCH (08:01)
[2023-03-15 08:03] LABS: BASOPHILS # (AUTO) 0.1 X10'3 (0-0.2); BASOPHILS % (AUTO) 0.3 % (0-1); EOSINOPHILS # (AUTO) 0.1 X10'3 (0-0.9); EOSINOPHILS % (AUTO) 0.8 % (0-6); HEMATOCRIT 32.9 % (42.0-52.0); HEMOGLOBIN 11.3 g/dl (14.0-17.9); LYMPHOCYTES # (AUTO) 1.6 X10'3 (1.1-4.8); LYMPHOCYTES % (AUTO) 9.1 % (21-51); MEAN CORPUSCULAR HEMOGLOBIN 34.6 PG (27.0-31.0); MEAN CORPUSCULAR HGB CONC 34.3 g/dL (33.0-36.5); MEAN CORPUSCULAR VOLUME 100.8 FL (78-98); MEAN PLATELET VOLUME 8.7 FL (7.4-10.4); MONOCYTES # (AUTO) 1.2 X10'3 (0-0.9); MONOCYTES % (AUTO) 6.8 % (2-12); NEUTROPHILS # (AUTO) 14.6 X10'3 (1.8-7.7); PLATELET COUNT 120 X10'3 (140-440); RED BLOOD COUNT 3.26 X10'6 (4.70-6.10); RED CELL DISTRIBUTION WIDTH 13.1 % (11.5-14.5); WHITE BLOOD COUNT 17.6 X10'3 (4.5-11.0)
[2023-03-15] MEDS: vancomycin/NS 1 GM ADD-VANTAGE 250 ML IV SCH ×2 (10:10→23:49)
[2023-03-15] MEDS: azithromycin/NS 500mg/250ml 250 ML IV SCH (15:36)
--- NOTE | 2023-03-15 17:08 | NUR ---
PAGER ID: [phone] MESSAGE: RE: STEPHEN Cobian [id number] Temp 103.2 giving Tylenol
[2023-03-15] MEDS: acetaminophen 325mg tablet PO PRN ×2 (17:11→22:03)
--- NOTE | 2023-03-15 18:05 | NUR ---
Problems reprioritized. Patient report given, questions answered & plan of care reviewed with Denilson YI.
--- NOTE | 2023-03-15 18:11 | NUR ---
promotional table spacer Notified Hospitalist of reassessment temp 101.1. Page Accepted promotional table spacer Message: RE [id number] Krishna Lloyd, Reassessment temp 101.1 an hour after 650 Tylenol. [facility] 5441 Transaction number: [id number]
[2023-03-15] MEDS: ALPRAZolam 0.5mg tablet PO SCH (20:06)
[2023-03-15] MEDS: atorvastatin 20mg tablet PO SCH (20:06)
[2023-03-15] MEDS ORDERED: warfarin 5mg tablet PO ONE (21:00)
[2023-03-15] MEDS ORDERED: VANCOMYCIN LEVEL IV ONE (22:30)
[2023-03-16 03:13] VITALS: BP 98/58
--- NOTE | 2023-03-16 06:15 | NUR ---
Patient in room PCU 3013. I have received report from Denilson YI and had the opportunity to ask questions and assume patient care.
[2023-03-16 06:28] LABS: EOSINOPHILS # (AUTO) 0.1 X10'3 (0-0.9); HEMOGLOBIN 10.4 g/dl (14.0-17.9); MEAN PLATELET VOLUME 8.9 FL (7.4-10.4)
[2023-03-16 06:30] LABS: ALANINE AMINOTRANSFERASE 55 U/L (12-78); ALBUMIN/GLOBULIN RATIO 0.7 (1.1-1.5); ALKALINE PHOSPHATASE 84 IU/L (46-116); ANION GAP 4 (8-16); ASPARTATE AMINO TRANSFERASE 33 U/L (10-37); BASOPHILS # (AUTO) 0.1 X10'3 (0-0.2); BASOPHILS % (AUTO) 0.4 % (0-1); BILIRUBIN,TOTAL 1.1 MG/DL (0.1-1.0); BLOOD UREA NITROGEN 15 MG/DL (7-18); BUN/CREATININE RATIO 15.8 (10.0-20.0); CALCIUM 7.9 MG/DL (8.5-10.1); CHLORIDE 107 MMOL/L (99-107); CREATININE 0.95 MG/DL (0.60-1.10); EOSINOPHILS % (AUTO) 0.6 % (0-6); GLUCOSE 100 MG/DL (70-104); HEMATOCRIT 30.3 % (42.0-52.0); LYMPHOCYTES # (AUTO) 1.7 X10'3 (1.1-4.8); LYMPHOCYTES % (AUTO) 11.3 % (21-51); MEAN CORPUSCULAR HEMOGLOBIN 34.3 PG (27.0-31.0); MEAN CORPUSCULAR HGB CONC 34.5 g/dL (33.0-36.5); MEAN CORPUSCULAR VOLUME 99.5 FL (78-98); MONOCYTES # (AUTO) 1.2 X10'3 (0-0.9); MONOCYTES % (AUTO) 7.9 % (2-12); NEUTROPHILS % (AUTO) 79.8 % (42-75); PLATELET COUNT 127 X10'3 (140-440); POTASSIUM 3.4 MMOL/L (3.5-5.1); RED BLOOD COUNT 3.04 X10'6 (4.70-6.10); RED CELL DISTRIBUTION WIDTH 13.1 % (11.5-14.5); SODIUM 138 MMOL/L (135-145); TOTAL CARBON DIOXIDE 26.8 MMOL/L (24-32); eGFR 79 ML/MIN
[2023-03-16 07:27] VITALS: BP 90/58
[2023-03-16] MEDS: spironolactone 25 MG tablet PO SCH (07:29)
[2023-03-16] MEDS: furosemide 20 MG/2 ML vial IV SCH (07:29)
[2023-03-16] MEDS: metoprolol tartrate 12.5mg (1/2 tablet) PO SCH (07:30)
[2023-03-16] MEDS: cefepime 1GM/NS ADD-VANTAGE 100 ML IV SCH ×3 (07:31→23:40)
[2023-03-16] MEDS: cholecalciferol (vitamin D3) 1,000 unit (25mcg) tablet PO SCH (07:32)
[2023-03-16] MEDS: levoTHYROXINE 25mcg tablet PO SCH (07:32)
[2023-03-16] MEDS: lactobacillus rhamnosus 10,000 MMU CELLS/CAPSULE PO SCH ×2 (07:32→21:02)
[2023-03-16] MEDS: ferrous sulfate 325mg tablet PO SCH (07:32)
[2023-03-16] MEDS: potassium Cl 20 mEq SR tablet PO PRN ×2 (07:32→11:12)
[2023-03-16] MEDS: ALPRAZolam 0.25mg tablet PO SCH (07:32)
[2023-03-16] MEDS: vancomycin/NS 1 GM ADD-VANTAGE 250 ML IV SCH (11:11)
[2023-03-16] MEDS: acetaminophen 325mg tablet PO PRN ×2 (11:11→17:14)
[2023-03-16 11:54] VITALS: BP 98/58
[2023-03-16] MEDS ORDERED: ipratropium/albuterol 3ml nebule NEB PRN (12:30)
[2023-03-16] MEDS ORDERED: aspirin 81mg tab.chew PO ONE (12:46)
[2023-03-16] MEDS: pantoprazole 40mg Tablet.DR PO SCH (13:27)
[2023-03-16] MEDS: azithromycin/NS 500mg/250ml 250 ML IV SCH (15:21)
[2023-03-16] MEDS: ipratropium/albuterol 3ml nebule NEB SCH ×3 (15:24→23:00)
--- NOTE | 2023-03-16 15:54 | NUR ---
Paged hospitalist regarding current Temp of 101.3, 650 tylonal givent at 1111 with Q 6 hour instructions.
[2023-03-16 15:57] VITALS: BP 93/60
--- NOTE | 2023-03-16 17:00 | NUR ---
Paged hospitalist PAGER ID: [phone] MESSAGE: RE: [phone] Angela Lloyd MRI not until Saturday at earliest., need Dart Nurse and Rep present. Lee U 2362
[2023-03-16 18:30] VITALS: BP 100/60
--- NOTE | 2023-03-16 18:32 | NUR ---
Problems reprioritized. Patient report given, questions answered & plan of care reviewed with Denilson YI.
[2023-03-16] MEDS ORDERED: Potassium Cl inj 20 MEQ in normal saline 1000ml 990 ML IV SCH (18:45)
[2023-03-16] MEDS ORDERED: iohexol 350MG/ML 100ml bottle IV ONE (20:37)
[2023-03-16] MEDS ORDERED: warfarin 5mg tablet PO ONE (21:00)
[2023-03-16] MEDS: atorvastatin 20mg tablet PO SCH (21:02)
[2023-03-16] MEDS: ALPRAZolam 0.5mg tablet PO SCH (21:02)
[2023-03-16 22:30] VITALS: BP 104/68
[2023-03-16] MEDS ORDERED: magnesium 2GM in 50ml NS 50 ML IV PRN (23:35)
[2023-03-16] MEDS ORDERED: potassium Cl 40MEQ/1/2NS 520ml 520 ML IV PRN (23:35)
[2023-03-16] MEDS ORDERED: potassium Cl 20 mEq SR tablet PO PRN (23:35)
[2023-03-16] MEDS ORDERED: magnesium 4gm in 100ml NS 100 ML IV PRN (23:35)
[2023-03-16] MEDS ORDERED: magnesium Cl slow-release 64mg tablet PO PRN (23:35)
--- NOTE | 2023-03-16 23:38 | NUR ---
dr andrews received and called back page regarding fluids, verified order regarding iv fluids in a chf with bnp of 5570. dr andrews ordered to discontinue iv fluids.
[2023-03-16] MEDS: VANCOmycin 1250MG/NS 250ml Bag 250 ML IV SCH (23:47)
[2023-03-17] VITALS (7 sets, daily range): BP systolic 89–128; BP diastolic 53–68
[2023-03-17] MEDS: acetaminophen 325mg tablet PO PRN ×2 (02:21→17:20)
--- NOTE | 2023-03-17 06:43 | NUR ---
Patient in room PCU 3013. I have received report from Denilson YI and had the opportunity to ask questions and assume patient care.
[2023-03-17 06:57] LABS: BASOPHILS % (AUTO) 0.3 % (0-1); EOSINOPHILS # (AUTO) 0.1 X10'3 (0-0.9); EOSINOPHILS % (AUTO) 0.4 % (0-6); HEMATOCRIT 30.9 % (42.0-52.0); HEMOGLOBIN 10.8 g/dl (14.0-17.9); LYMPHOCYTES # (AUTO) 1.4 X10'3 (1.1-4.8); MEAN CORPUSCULAR HEMOGLOBIN 34.6 PG (27.0-31.0); MEAN CORPUSCULAR HGB CONC 34.8 g/dL (33.0-36.5); MEAN CORPUSCULAR VOLUME 99.6 FL (78-98); MEAN PLATELET VOLUME 8.5 FL (7.4-10.4); MONOCYTES # (AUTO) 1.4 X10'3 (0-0.9); MONOCYTES % (AUTO) 10.1 % (2-12); NEUTROPHILS # (AUTO) 11.2 X10'3 (1.8-7.7); NEUTROPHILS % (AUTO) 79.2 % (42-75); PLATELET COUNT 149 X10'3 (140-440); RED BLOOD COUNT 3.11 X10'6 (4.70-6.10); WHITE BLOOD COUNT 14.1 X10'3 (4.5-11.0)
[2023-03-17] MEDS: ipratropium/albuterol 3ml nebule NEB SCH ×5 (07:19→22:54)
[2023-03-17 07:25] LABS: ALANINE AMINOTRANSFERASE 53 U/L (12-78); ALBUMIN 1.9 G/DL (3.4-5.0); ALBUMIN/GLOBULIN RATIO 0.6 (1.1-1.5); ALKALINE PHOSPHATASE 77 IU/L (46-116); ANION GAP 6 (8-16); ASPARTATE AMINO TRANSFERASE 36 U/L (10-37); BILIRUBIN,TOTAL 0.9 MG/DL (0.1-1.0); BLOOD UREA NITROGEN 13 MG/DL (7-18); BUN/CREATININE RATIO 14.6 (10.0-20.0); CALCIUM 8.2 MG/DL (8.5-10.1); CHLORIDE 106 MMOL/L (99-107); CREATININE 0.89 MG/DL (0.60-1.10); GLUCOSE 97 MG/DL (70-104); MAGNESIUM 1.8 MG/DL (1.5-2.4); POTASSIUM 3.6 MMOL/L (3.5-5.1); SODIUM 140 MMOL/L (135-145); TOTAL CARBON DIOXIDE 27.9 MMOL/L (24-32); eGFR 86 ML/MIN
[2023-03-17] MEDS: aspirin 81mg tab.chew PO SCH (07:46)
[2023-03-17] MEDS: ALPRAZolam 0.25mg tablet PO SCH (07:46)
[2023-03-17] MEDS: cefepime 1GM/NS ADD-VANTAGE 100 ML IV SCH ×2 (07:46→15:19)
[2023-03-17] MEDS: cholecalciferol (vitamin D3) 1,000 unit (25mcg) tablet PO SCH (07:46)
[2023-03-17] MEDS: levoTHYROXINE 25mcg tablet PO SCH (07:46)
[2023-03-17] MEDS: lactobacillus rhamnosus 10,000 MMU CELLS/CAPSULE PO SCH ×2 (07:46→19:59)
[2023-03-17] MEDS: pantoprazole 40mg Tablet.DR PO SCH (07:46)
[2023-03-17] MEDS: ferrous sulfate 325mg tablet PO SCH (07:46)
[2023-03-17] MEDS: K and/or MAG REPLACEMENT MC SCH ×2 (08:00→19:38)
[2023-03-17] MEDS: VANCOmycin 1250MG/NS 250ml Bag 250 ML IV SCH (11:14)
[2023-03-17 11:36] LABS: ABG BASE EXCESS 0.9 mmol/L (-2.0-2.0); ABG HCO3 24.1 mmol/L (22.0-26.0); ABG OXYGEN SATURATION 91.2 % (94-97); ABG PCO2 (T) 33.9 mmHg (35.0-48.0); ALLEN'S TEST POSITIVE; FCOHb 0.6 % (0.0-3.9); FLOW 6 L/min; FMetHb 0.3 % (0.0-1.5); FO2Hb 90.4 % (94-97); TOTAL HEMOGLOBIN 12.7 G/dl (14.0-17.9)
[2023-03-17] MEDS: azithromycin/NS 500mg/250ml 250 ML IV SCH (15:19)
--- NOTE | 2023-03-17 18:07 | NUR ---
Problems reprioritized. Patient report given, questions answered & plan of care reviewed with Denilson YI.
[2023-03-17] MEDS: atorvastatin 20mg tablet PO SCH (20:00)
[2023-03-17] MEDS: ALPRAZolam 0.5mg tablet PO SCH (20:00)
[2023-03-17 20:44] LABS: D-DIMER 1.28 MG/L FEU (0-0.50)
[2023-03-17] MEDS ORDERED: iohexol 350MG/ML 100ml bottle IV ONE (21:20)
[2023-03-17] MEDS ORDERED: furosemide 20 MG/2 ML vial IV ONE (23:25)
[2023-03-18] VITALS (7 sets, daily range): BP systolic 86–105; BP diastolic 53–67
[2023-03-18] MEDS: acetaminophen 325mg tablet PO PRN ×2 (02:28→08:04)
--- NOTE | 2023-03-18 06:35 | NUR ---
Patient in room PCU 3013. I have received report from Denilson YI and had the opportunity to ask questions and assume patient care.
[2023-03-18 07:09] LABS: BASOPHILS % (AUTO) 0.4 % (0-1); EOSINOPHILS # (AUTO) 0.1 X10'3 (0-0.9); EOSINOPHILS % (AUTO) 0.7 % (0-6); HEMATOCRIT 30.3 % (42.0-52.0); HEMOGLOBIN 10.4 g/dl (14.0-17.9); LYMPHOCYTES % (AUTO) 7.3 % (21-51); MEAN CORPUSCULAR HEMOGLOBIN 34.2 PG (27.0-31.0); MEAN CORPUSCULAR HGB CONC 34.3 g/dL (33.0-36.5); MEAN CORPUSCULAR VOLUME 99.7 FL (78-98); MEAN PLATELET VOLUME 8.7 FL (7.4-10.4); MONOCYTES # (AUTO) 1.6 X10'3 (0-0.9); MONOCYTES % (AUTO) 11.8 % (2-12); NEUTROPHILS # (AUTO) 10.9 X10'3 (1.8-7.7); NEUTROPHILS % (AUTO) 79.8 % (42-75); PLATELET COUNT 154 X10'3 (140-440); RED BLOOD COUNT 3.04 X10'6 (4.70-6.10); RED CELL DISTRIBUTION WIDTH 13.5 % (11.5-14.5); WHITE BLOOD COUNT 13.7 X10'3 (4.5-11.0)
[2023-03-18 07:45] LABS: ALANINE AMINOTRANSFERASE 56 U/L (12-78); ALBUMIN 1.8 G/DL (3.4-5.0); ALBUMIN/GLOBULIN RATIO 0.5 (1.1-1.5); ALKALINE PHOSPHATASE 86 IU/L (46-116); ANION GAP 10 (8-16); ASPARTATE AMINO TRANSFERASE 44 U/L (10-37); BILIRUBIN,TOTAL 0.9 MG/DL (0.1-1.0); BLOOD UREA NITROGEN 13 MG/DL (7-18); BUN/CREATININE RATIO 15.7 (10.0-20.0); CALCIUM 8.2 MG/DL (8.5-10.1); CHLORIDE 103 MMOL/L (99-107); CREATININE 0.83 MG/DL (0.60-1.10); GLUCOSE 100 MG/DL (70-104); MAGNESIUM 1.8 MG/DL (1.5-2.4); POTASSIUM 3.9 MMOL/L (3.5-5.1); SODIUM 142 MMOL/L (135-145); TOTAL CARBON DIOXIDE 29.1 MMOL/L (24-32); TOTAL PROTEIN 5.1 G/DL (6.4-8.2); eGFR > 90 ML/MIN
[2023-03-18] MEDS: ipratropium/albuterol 3ml nebule NEB SCH ×5 (07:48→23:17)
[2023-03-18] MEDS ORDERED: furosemide 40mg/4ml inj IV ONE (08:00)
[2023-03-18] MEDS: K and/or MAG REPLACEMENT MC SCH ×2 (08:00→20:00)
[2023-03-18] MEDS: cholecalciferol (vitamin D3) 1,000 unit (25mcg) tablet PO SCH (08:02)
[2023-03-18] MEDS: lactobacillus rhamnosus 10,000 MMU CELLS/CAPSULE PO SCH ×2 (08:02→20:40)
[2023-03-18] MEDS: levoTHYROXINE 25mcg tablet PO SCH (08:02)
[2023-03-18] MEDS: ferrous sulfate 325mg tablet PO SCH (08:02)
[2023-03-18] MEDS: cefepime 1GM/NS ADD-VANTAGE 100 ML IV SCH ×3 (08:02→16:42)
[2023-03-18] MEDS: aspirin 81mg tab.chew PO SCH (08:02)
[2023-03-18] MEDS: pantoprazole 40mg Tablet.DR PO SCH (08:03)
[2023-03-18] MEDS: ALPRAZolam 0.25mg tablet PO SCH (08:03)
[2023-03-18] MEDS ORDERED: furosemide inj 100 MG in normal saline 100ml IV soln 90 ML IV SCH (10:10)
[2023-03-18] MEDS ORDERED: VANCOMYCIN LEVEL IV ONE (10:30)
[2023-03-18] MEDS: furosemide inj 100 MG in normal saline 100ml IV soln 90 ML IV SCH ×2 (12:19→20:45)
--- NOTE | 2023-03-18 12:53 | NUR ---
Initial: Pt admit DX sepsis secondary to bilateral community-acquired PNA, L facial numbness pending MRI today to rule out CVA w/ hx TBI, acute respiratory failure, hypokalemia, diarrhea-now resolved, CHF, hypotension, and hypothyroidism per EMR. PO ~79% avg heart healthy diet partially meeting estimated needs given stature/DX; RD notified MD recommends Ensure High Protein TIDWM to assist meeting needs. RD d/w RN regarding if need for NUTRITION AND DIETETICS INSTRUCTOR BSS given facial numbness/TBI hx despite consistent PO trends. LBM 5/7 w/ daily small BM's following initial large BM's on admit per EMR. Will monitor for further nutrition intervention needs this admit. Rec: 1. continue heart healthy diet per MD; NUTRITION AND DIETETICS INSTRUCTOR BSS if PO safety concerns-consistent intake trends so far this admit 2. Ensure High Protein TIDWM; pending physician verification in EMR 3. routine bowel care 4. scaled wt this admit; subsequent weekly wt Addendum: 03/18/23 at [address] Amended: Links added.
[2023-03-18] MEDS: lactose-reduced food (Ensure High Protein) 237ml bottle PO SCH ×2 (13:00→18:00)
--- NOTE | 2023-03-18 13:34 | NUR ---
Page Sent promotional table spacer PAGER ID: [phone] MESSAGE: [phone] Gabino. Patient BP soft 86/53 with map of 63. Do you want us to continue the lasix gtt as long as map is above 60 and patient is asymptomatic with softer pressures? Francisca @1053
--- NOTE | 2023-03-18 14:24 | NUR ---
patient to MRI
--- NOTE | 2023-03-18 14:30 | NUR ---
Patient arrived via to MRI trailer at approx. 1430, pacemaker sales and marketing representative present. Pacemaker rep adjusted settings on patients pacemaker and patient was assisted onto MRI table, leads placed, and pulse ox. Patients pulse oximeter was not reading well on finger, so probe was moved to right second toe at which oxygen saturations were better monitored at 95% or greater throughout scan. Patient was shivering due to being cold most of the scan which made monitoring difficult. However, Heart rate was able to be monitor with a good waveform intermittently throughout scan. Patient was observed by myself, Bindu automotive technology instructor and Keysha, pacemaker rep, throughout MRI, no complications. Patient tolerated MRI well without problems.
[2023-03-18] MEDS: azithromycin/NS 500mg/250ml 250 ML IV SCH (16:42)
--- NOTE | 2023-03-18 18:17 | NUR ---
Problems reprioritized. Patient report given, questions answered & plan of care reviewed with Mel YI. Patient resting in chair in no acute distress.
[2023-03-18] MEDS ORDERED: LidoCAINE 2% Topical Jelly 11mL syringe TOP ONE (19:00)
[2023-03-18] MEDS ORDERED: methylPREDNISolone sod succ 125mg/2ml vial IV ONE (19:00)
[2023-03-18 19:02] LABS: ALANINE AMINOTRANSFERASE 71 U/L (12-78); ALBUMIN 2.2 G/DL (3.4-5.0); ALBUMIN/GLOBULIN RATIO 0.5 (1.1-1.5); ALKALINE PHOSPHATASE 95 IU/L (46-116); ANION GAP 6 (8-16); ASPARTATE AMINO TRANSFERASE 69 U/L (10-37); BILIRUBIN,TOTAL 0.8 MG/DL (0.1-1.0); BLOOD UREA NITROGEN 18 MG/DL (7-18); BUN/CREATININE RATIO 16.8 (10.0-20.0); CALCIUM 8.4 MG/DL (8.5-10.1); CHLORIDE 104 MMOL/L (99-107); CREATININE 1.07 MG/DL (0.60-1.10); GLUCOSE 132 MG/DL (70-104); MAGNESIUM 1.9 MG/DL (1.5-2.4); SODIUM 140 MMOL/L (135-145); TOTAL CARBON DIOXIDE 29.6 MMOL/L (24-32); TOTAL PROTEIN 6.3 G/DL (6.4-8.2); eGFR 69 ML/MIN
[2023-03-18 19:22] LABS: POTASSIUM 4.3 MMOL/L (3.5-5.1)
[2023-03-18] MEDS ORDERED: furosemide 20 MG/2 ML vial IV SCH (20:00)
[2023-03-18] MEDS: methylPREDNISolone sod succ 125mg/2ml vial IV SCH (20:00)
[2023-03-18] MEDS: atorvastatin 20mg tablet PO SCH (20:40)
[2023-03-18] MEDS: ALPRAZolam 0.5mg tablet PO SCH (20:41)
[2023-03-19] MEDS: cefepime 1GM/NS ADD-VANTAGE 100 ML IV SCH ×3 (00:36→16:12)
[2023-03-19] MEDS: methylPREDNISolone sod succ 125mg/2ml vial IV SCH ×3 (02:09→13:21)
[2023-03-19 03:15] LABS: ALANINE AMINOTRANSFERASE 66 U/L (12-78); ALBUMIN 1.9 G/DL (3.4-5.0); ALBUMIN/GLOBULIN RATIO 0.5 (1.1-1.5); ALKALINE PHOSPHATASE 81 IU/L (46-116); ANION GAP 5 (8-16); ASPARTATE AMINO TRANSFERASE 44 U/L (10-37); BILIRUBIN,TOTAL 0.7 MG/DL (0.1-1.0); BLOOD UREA NITROGEN 22 MG/DL (7-18); CHLORIDE 102 MMOL/L (99-107); CREATININE 1.16 MG/DL (0.60-1.10); GLUCOSE 184 MG/DL (70-104); POTASSIUM 3.8 MMOL/L (3.5-5.1); SODIUM 139 MMOL/L (135-145); TOTAL CARBON DIOXIDE 32.2 MMOL/L (24-32); TOTAL PROTEIN 5.7 G/DL (6.4-8.2); eGFR 63 ML/MIN
[2023-03-19] MEDS: furosemide inj 100 MG in normal saline 100ml IV soln 90 ML IV SCH ×2 (05:13→16:12)
--- NOTE | 2023-03-19 06:10 | NUR ---
Patient in room PCU 3013. I have received report from Trice YI and had the opportunity to ask questions and assume patient care.
--- NOTE | 2023-03-19 06:16 | NUR ---
Problems reprioritized. Patient report given, questions answered & plan of care reviewed with KASSIDY Gallardo.
[2023-03-19 07:00] VITALS: BP 106/74
[2023-03-19] MEDS: ipratropium/albuterol 3ml nebule NEB SCH ×5 (07:00→22:24)
[2023-03-19 07:11] LABS: ALANINE AMINOTRANSFERASE 59 U/L (12-78); ALBUMIN 1.9 G/DL (3.4-5.0); ALBUMIN/GLOBULIN RATIO 0.5 (1.1-1.5); ALKALINE PHOSPHATASE 80 IU/L (46-116); ANION GAP 8 (8-16); ASPARTATE AMINO TRANSFERASE 45 U/L (10-37); BILIRUBIN,TOTAL 0.7 MG/DL (0.1-1.0); BLOOD UREA NITROGEN 21 MG/DL (7-18); BUN/CREATININE RATIO 19.3 (10.0-20.0); CALCIUM 8.4 MG/DL (8.5-10.1); CHLORIDE 101 MMOL/L (99-107); CREATININE 1.09 MG/DL (0.60-1.10); GLUCOSE 158 MG/DL (70-104); MAGNESIUM 2.1 MG/DL (1.5-2.4); POTASSIUM 3.7 MMOL/L (3.5-5.1); SODIUM 143 MMOL/L (135-145); TOTAL PROTEIN 5.6 G/DL (6.4-8.2); eGFR 68 ML/MIN
[2023-03-19] MEDS: K and/or MAG REPLACEMENT MC SCH ×2 (08:00→20:00)
[2023-03-19] MEDS: aspirin 81mg tab.chew PO SCH (08:27)
[2023-03-19] MEDS: EMPAGLIFLOZIN 10 MG TABLET PO SCH (08:28)
[2023-03-19] MEDS: midodrine tablet 2.5 MG TABLET PO SCH ×3 (08:29→16:23)
[2023-03-19] MEDS: ALPRAZolam 0.25mg tablet PO SCH (08:31)
[2023-03-19] MEDS: pantoprazole 40mg Tablet.DR PO SCH (08:31)
[2023-03-19] MEDS: ferrous sulfate 325mg tablet PO SCH (08:31)
[2023-03-19] MEDS: cholecalciferol (vitamin D3) 1,000 unit (25mcg) tablet PO SCH (08:31)
[2023-03-19] MEDS: lactobacillus rhamnosus 10,000 MMU CELLS/CAPSULE PO SCH ×2 (08:31→21:32)
[2023-03-19] MEDS: levoTHYROXINE 25mcg tablet PO SCH (08:31)
[2023-03-19] MEDS: lactose-reduced food (Ensure High Protein) 237ml bottle PO SCH ×3 (08:50→13:34)
[2023-03-19 10:30] VITALS: BP 98/60
[2023-03-19 13:01] LABS: ALANINE AMINOTRANSFERASE 77 U/L (12-78); ALBUMIN 2.1 G/DL (3.4-5.0); ALBUMIN/GLOBULIN RATIO 0.5 (1.1-1.5); ALKALINE PHOSPHATASE 91 IU/L (46-116); ANION GAP 9 (8-16); ASPARTATE AMINO TRANSFERASE 64 U/L (10-37); BILIRUBIN,TOTAL 0.7 MG/DL (0.1-1.0); BLOOD UREA NITROGEN 23 MG/DL (7-18); CALCIUM 8.8 MG/DL (8.5-10.1); CHLORIDE 101 MMOL/L (99-107); CREATININE 1.15 MG/DL (0.60-1.10); GLUCOSE 118 MG/DL (70-104); MAGNESIUM 2.2 MG/DL (1.5-2.4); POTASSIUM 3.5 MMOL/L (3.5-5.1); SODIUM 144 MMOL/L (135-145); TOTAL CARBON DIOXIDE 33.6 MMOL/L (24-32); TOTAL PROTEIN 6.1 G/DL (6.4-8.2); eGFR 64 ML/MIN
[2023-03-19 13:05] LABS: BASOPHILS # (AUTO) 0.1 X10'3 (0-0.2); BASOPHILS % (AUTO) 0.6 % (0-1); EOSINOPHILS % (AUTO) 0.1 % (0-6); HEMATOCRIT 31.4 % (42.0-52.0); HEMOGLOBIN 10.5 g/dl (14.0-17.9); LYMPHOCYTES # (AUTO) 0.5 X10'3 (1.1-4.8); LYMPHOCYTES % (AUTO) 4.3 % (21-51); MEAN CORPUSCULAR HEMOGLOBIN 33.9 PG (27.0-31.0); MEAN CORPUSCULAR HGB CONC 33.6 g/dL (33.0-36.5); MEAN CORPUSCULAR VOLUME 100.8 FL (78-98); MEAN PLATELET VOLUME 9.2 FL (7.4-10.4); MONOCYTES # (AUTO) 0.4 X10'3 (0-0.9); MONOCYTES % (AUTO) 3.5 % (2-12); NEUTROPHILS # (AUTO) 10.3 X10'3 (1.8-7.7); NEUTROPHILS % (AUTO) 91.5 % (42-75); PLATELET COUNT 194 X10'3 (140-440); RED BLOOD COUNT 3.11 X10'6 (4.70-6.10); RED CELL DISTRIBUTION WIDTH 13.7 % (11.5-14.5); WHITE BLOOD COUNT 11.3 X10'3 (4.5-11.0)
[2023-03-19 15:00] VITALS: BP 90/42
[2023-03-19] MEDS: azithromycin/NS 500mg/250ml 250 ML IV SCH (16:24)
[2023-03-19 16:32] VITALS: BP 92/52
--- NOTE | 2023-03-19 16:50 | NUR ---
Paged RT 3013B. Gabino. 91% on 15L HF, increased from 10L. Pls advise
--- NOTE | 2023-03-19 17:03 | NUR ---
Advised patient to use cpap at bedside: pt refused.
[2023-03-19 18:00] VITALS: BP 82/54
--- NOTE | 2023-03-19 18:00 | NUR ---
Patient in room PCU 3013. I have received report from Mary Ann YI and had the opportunity to ask questions and assume patient care.
--- NOTE | 2023-03-19 18:26 | NUR ---
Problems reprioritized. Patient report given, questions answered & plan of care reviewed with Karen YI. Pt stable at shift change.
[2023-03-19 19:04] LABS: ALANINE AMINOTRANSFERASE 84 U/L (12-78); ALBUMIN/GLOBULIN RATIO 0.5 (1.1-1.5); ALKALINE PHOSPHATASE 97 IU/L (46-116); ANION GAP 6 (8-16); ASPARTATE AMINO TRANSFERASE 79 U/L (10-37); BILIRUBIN,TOTAL 0.6 MG/DL (0.1-1.0); BLOOD UREA NITROGEN 31 MG/DL (7-18); BUN/CREATININE RATIO 26.3 (10.0-20.0); CALCIUM 8.4 MG/DL (8.5-10.1); CHLORIDE 101 MMOL/L (99-107); CREATININE 1.18 MG/DL (0.60-1.10); GLUCOSE 151 MG/DL (70-104); MAGNESIUM 2.1 MG/DL (1.5-2.4); POTASSIUM 3.6 MMOL/L (3.5-5.1); SODIUM 142 MMOL/L (135-145); TOTAL PROTEIN 5.9 G/DL (6.4-8.2); eGFR 62 ML/MIN
[2023-03-19] MEDS ORDERED: warfarin 2.5mg tablet PO ONE (21:00)
[2023-03-19] MEDS: ALPRAZolam 0.5mg tablet PO SCH (21:31)
[2023-03-19] MEDS: atorvastatin 20mg tablet PO SCH (21:31)
[2023-03-19 22:00] VITALS: BP 92/54
[2023-03-20] MEDS: cefepime 1GM/NS ADD-VANTAGE 100 ML IV SCH ×2 (00:16→07:27)
[2023-03-20] MEDS: methylPREDNISolone sod succ/PF 40mg inj. IV SCH ×2 (00:16→07:27)
[2023-03-20 02:00] VITALS: BP 95/59
[2023-03-20] MEDS: furosemide inj 100 MG in normal saline 100ml IV soln 90 ML IV SCH (05:57)
--- NOTE | 2023-03-20 06:35 | NUR ---
Patient in room PCU 3013. I have received report from Karen YI, and had the opportunity to ask questions and assume patient care.
--- NOTE | 2023-03-20 06:59 | NUR ---
Problems reprioritized. Patient report given, questions answered & plan of care reviewed with Zenaida YI.
[2023-03-20] MEDS: ipratropium/albuterol 3ml nebule NEB SCH ×2 (07:20→11:17)
[2023-03-20] MEDS: cholecalciferol (vitamin D3) 1,000 unit (25mcg) tablet PO SCH (07:27)
[2023-03-20] MEDS: EMPAGLIFLOZIN 10 MG TABLET PO SCH (07:27)
[2023-03-20] MEDS: ALPRAZolam 0.25mg tablet PO SCH (07:28)
[2023-03-20] MEDS: lactobacillus rhamnosus 10,000 MMU CELLS/CAPSULE PO SCH (07:28)
[2023-03-20] MEDS: levoTHYROXINE 25mcg tablet PO SCH (07:28)
[2023-03-20] MEDS: pantoprazole 40mg Tablet.DR PO SCH (07:28)
[2023-03-20] MEDS: ferrous sulfate 325mg tablet PO SCH (07:28)
[2023-03-20] MEDS: midodrine tablet 2.5 MG TABLET PO SCH ×2 (07:29→11:08)
[2023-03-20 07:39] LABS: BASOPHILS % (AUTO) 0.1 % (0-1); EOSINOPHILS % (AUTO) 0 % (0-6); HEMATOCRIT 31.3 % (42.0-52.0); HEMOGLOBIN 10.5 g/dl (14.0-17.9); LYMPHOCYTES % (AUTO) 5.1 % (21-51); MEAN CORPUSCULAR HEMOGLOBIN 33.6 PG (27.0-31.0); MEAN CORPUSCULAR HGB CONC 33.5 g/dL (33.0-36.5); MEAN CORPUSCULAR VOLUME 100.1 FL (78-98); MEAN PLATELET VOLUME 8.6 FL (7.4-10.4); MONOCYTES # (AUTO) 0.7 X10'3 (0-0.9); MONOCYTES % (AUTO) 3.5 % (2-12); NEUTROPHILS # (AUTO) 18.5 X10'3 (1.8-7.7); NEUTROPHILS % (AUTO) 91.3 % (42-75); PLATELET COUNT 290 X10'3 (140-440); RED BLOOD COUNT 3.13 X10'6 (4.70-6.10); RED CELL DISTRIBUTION WIDTH 13.4 % (11.5-14.5); WHITE BLOOD COUNT 20.2 X10'3 (4.5-11.0)
[2023-03-20 07:55] LABS: ALANINE AMINOTRANSFERASE 99 U/L (12-78); ALBUMIN 1.8 G/DL (3.4-5.0); ALBUMIN/GLOBULIN RATIO 0.5 (1.1-1.5); ALKALINE PHOSPHATASE 89 IU/L (46-116); ANION GAP 5 (8-16); ASPARTATE AMINO TRANSFERASE 84 U/L (10-37); BILIRUBIN,TOTAL 0.5 MG/DL (0.1-1.0); BLOOD UREA NITROGEN 37 MG/DL (7-18); BUN/CREATININE RATIO 33.6 (10.0-20.0); CALCIUM 8.2 MG/DL (8.5-10.1); CHLORIDE 103 MMOL/L (99-107); GLUCOSE 136 MG/DL (70-104); MAGNESIUM 2.2 MG/DL (1.5-2.4); POTASSIUM 3.4 MMOL/L (3.5-5.1); SODIUM 144 MMOL/L (135-145); TOTAL PROTEIN 5.3 G/DL (6.4-8.2); eGFR 67 ML/MIN
[2023-03-20] MEDS: K and/or MAG REPLACEMENT MC SCH (08:00)
[2023-03-20] MEDS: lactose-reduced food (Ensure High Protein) 237ml bottle PO SCH (08:01)
[2023-03-20] MEDS ORDERED: potassium Cl 20 mEq SR tablet PO ONE (10:40)
[2023-03-20] MEDS: aspirin 81mg tab.chew PO SCH (11:08)
--- NOTE | 2023-03-20 11:23 | NUR ---
Pt c/o nose hurting d/t the high flow salter. Wondering if he could try a mask. Pt SpO2 88% on 15LPM hiflow. Pt placed on 10LPM simple mask. Tolerating well and states his nose feels better. SpO2 94% on 10L simple mask, titrated down to 8LPM with an SpO2 of 92%. Addendum: 03/20/23 at 1126 by Charlene Li RT Amended: Links added.
--- NOTE | 2023-03-20 14:26 | NUR ---
Pt stable for transfer to [facility] per Dr. Stacy. Called and gave report to Veronica YI. Stopped Pt's lasix for transport. Pt going to [facility] with morrow catheter and PIV for antibiotics and lasix drip. EMT and call circuit worker transferred to [facility].
[2023-03-20] MEDS ORDERED: warfarin 4mg tablet PO ONE (21:00)
== END 2023-03-20 13:15 | DRG 871 ==
LOC: ER 12:11 → ED HOLD 15:06 → PCU 3S 19:19
PROVIDERS: ADMIT Internal Medicine; ATTEND Internal Medicine
PROC: 5A09357 Assistance with Respiratory Ventilation, Less than 24 Consecutive Hours, Continuous Positive Airway Pressure (ICD-10-PCS; principal; 2023-03-13)
PROC: B32T1ZZ Computerized Tomography (CT Scan) of Left Pulmonary Artery using Low Osmolar Contrast (ICD-10-PCS; 2023-03-13)
PROC: B3201ZZ Computerized Tomography (CT Scan) of Thoracic Aorta using Low Osmolar Contrast (ICD-10-PCS; 2023-03-13)
PROC: B32S1ZZ Computerized Tomography (CT Scan) of Right Pulmonary Artery using Low Osmolar Contrast (ICD-10-PCS; 2023-03-13)
PROC: 5A09357 Assistance with Respiratory Ventilation, Less than 24 Consecutive Hours, Continuous Positive Airway Pressure (ICD-10-PCS; 2023-03-15)
PROC: 5A09357 Assistance with Respiratory Ventilation, Less than 24 Consecutive Hours, Continuous Positive Airway Pressure (ICD-10-PCS; 2023-03-16)
PROC: B3251ZZ Computerized Tomography (CT Scan) of Bilateral Common Carotid Arteries using Low Osmolar Contrast (ICD-10-PCS; 2023-03-16)
PROC: B32G1ZZ Computerized Tomography (CT Scan) of Bilateral Vertebral Arteries using Low Osmolar Contrast (ICD-10-PCS; 2023-03-16)
PROC: B32R1ZZ Computerized Tomography (CT Scan) of Intracranial Arteries using Low Osmolar Contrast (ICD-10-PCS; 2023-03-16)
PROC: B3281ZZ Computerized Tomography (CT Scan) of Bilateral Internal Carotid Arteries using Low Osmolar Contrast (ICD-10-PCS; 2023-03-16)
PROC: 5A09357 Assistance with Respiratory Ventilation, Less than 24 Consecutive Hours, Continuous Positive Airway Pressure (ICD-10-PCS; 2023-03-17)
PROC: 5A0935A Assistance with Respiratory Ventilation, Less than 24 Consecutive Hours, High Flow/Velocity Cannula (ICD-10-PCS; 2023-03-17)
PROC: B32T1ZZ Computerized Tomography (CT Scan) of Left Pulmonary Artery using Low Osmolar Contrast (ICD-10-PCS; 2023-03-17)
PROC: B3201ZZ Computerized Tomography (CT Scan) of Thoracic Aorta using Low Osmolar Contrast (ICD-10-PCS; 2023-03-17)
PROC: B32S1ZZ Computerized Tomography (CT Scan) of Right Pulmonary Artery using Low Osmolar Contrast (ICD-10-PCS; 2023-03-17)
PROC: 5A09357 Assistance with Respiratory Ventilation, Less than 24 Consecutive Hours, Continuous Positive Airway Pressure (ICD-10-PCS; 2023-03-18)
PROC: 5A0935A Assistance with Respiratory Ventilation, Less than 24 Consecutive Hours, High Flow/Velocity Cannula (ICD-10-PCS; 2023-03-18)
PROC: 5A0935A Assistance with Respiratory Ventilation, Less than 24 Consecutive Hours, High Flow/Velocity Cannula (ICD-10-PCS; 2023-03-19)
PROC: 5A0935A Assistance with Respiratory Ventilation, Less than 24 Consecutive Hours, High Flow/Velocity Cannula (ICD-10-PCS; 2023-03-20)
DX: A41.9 Sepsis, unspecified organism (principal); I50.23 Acute on chronic systolic (congestive) heart failure; J18.9 Pneumonia, unspecified organism; J96.01 Acute respiratory failure with hypoxia; I27.82 Chronic pulmonary embolism; I42.9 Cardiomyopathy, unspecified; Z20.822 Contact with and (suspected) exposure to COVID-19; E87.6 Hypokalemia; E03.9 Hypothyroidism, unspecified; I95.9 Hypotension, unspecified; M54.50 Low back pain, unspecified; I25.10 Atherosclerotic heart disease of native coronary artery without angina pectoris; R19.7 Diarrhea, unspecified; D86.9 Sarcoidosis, unspecified; R20.0 Anesthesia of skin; G47.33 Obstructive sleep apnea (adult) (pediatric); J84.10 Pulmonary fibrosis, unspecified; Z79.01 Long term (current) use of anticoagulants; Z87.820 Personal history of traumatic brain injury; Z95.0 Presence of cardiac pacemaker; Z88.8 Allergy status to other drugs, medicaments and biological substances; Z79.899 Other long term (current) drug therapy; Z95.5 Presence of coronary angioplasty implant and graft
CPT/HCPCS: 36415; 36600; 70450; 70496; 70498; 70551; 71045; 71275; 74176; 80053; 80202; 81003; 82803; 83605; 83735; 83880; 84145; 84443; 84484; 85007; 85018; 85025; 85379; 85610; 87040; 87081; 87502; 87503; 87811; 93306; 93880; 93970; 94640; 94664; 94668; 94760; 97116; 97161; 97164; 97530; 99285; A4615; A4620; C2617; G0378; J0456; J0692; J0696; J1650; J1940; J2405; J2920; J2930; J3370; J3490; J7030; J7040; Q9967